=== PATIENT | female | born 1970 | race Two or more races ===

== ENCOUNTER → 2020-09-01 | Outpatient (CLI) | payer SELFPAY ==
[~2020-09-01] MED LIST: DOCU-109 PO; IBUP-1060 PO; OXYC1TAB15 PO
== END ==
LOC: LAB 12:13
PROVIDERS: ATTEND Obstetrics & Gynecology
DX: Z01.812 Encounter for preprocedural laboratory examination (principal); Z20.828 Contact with and (suspected) exposure to other viral communicable diseases; N95.0 Postmenopausal bleeding
CPT/HCPCS: U0003

== ENCOUNTER 2020-09-05 06:05 | Day surgery (SDC) | payer SELFPAY ==
[~2020-09-05] VITALS: Ht 166.4 cm; Wt 68.9 kg
[2020-09-05] MEDS ORDERED: fentaNYL PF VIAL 100 MCG/2 ML VIAL IVP PRN ×2 (07:00)
[2020-09-05] MEDS ORDERED: ONDANSETRON PF 4 MG/2 ML VIAL. IVP PRN (07:00)
[2020-09-05] MEDS ORDERED: PROCHLORPERAZINE 10 MG/2 ML VIAL. IVP PRN (07:00)
[2020-09-05] MEDS ORDERED: LIDOCAINE 1% PF 2 ML VIAL. ID PRN (07:00)
[2020-09-05] MEDS ORDERED: HYDROmorphone 2 MG/ML VIAL IVP PRN (07:00)
[2020-09-05] MEDS ORDERED: IV RINGERS,LACTATED 1000ML 1,000 ML IV SCH (07:00)
[2020-09-05] MEDS ORDERED: MORPHINE SULFATE 2 MG/ML VIAL. IVP PRN (07:00)
[2020-09-05] MEDS ORDERED: MIDAZOLAM HCL/PF 2 MG/2 ML VIAL. ONE (07:10)
[2020-09-05] MEDS ORDERED: DEXAMETHASONE SOD PHOS 4 MG/ML VIAL ONE (07:10)
[2020-09-05] MEDS ORDERED: LIDOCAINE 2% PF 5 ML VIAL. ONE (07:10)
[2020-09-05] MEDS ORDERED: PROPOFOL 10 MG/ML (20ML) VIAL. IV ONE (07:10)
[2020-09-05] MEDS ORDERED: ONDANSETRON PF 4 MG/2 ML VIAL. ONE ×2 (07:10→07:57)
--- NOTE | 2020-09-05 07:14 | PDOC1 ---
AUCTION ASSISTANT H&P Date of Admission: Date of Admission: History of Present Illness: 50y presents for scheduled surgery. The pt presented to the office on 07/13/20 with irregular vaginal bleeding. A large cervical polyp was found on exam, but could not be removed in the office. Most likely due to the polyp having a large base. At the visit we discussed removal in the OR. PMH: Hyperlipidemia, H/o Chl PSH: Denies Meds: Vit D, Ca, Gabapentin, Flonase All: NKDA OBHx: TSVD x 4, AB x 1 SH: no tob, no EtOH FH: stroke, DM Allergies: Coded Allergies: No Known Drug Allergies (Unverified , 09/01/20) Physical Exam: PE: GENERAL: No apparent distress. Alert and oriented. HEENT: Head normocephalic, atraumatic. NECK: Supple LUNGS: Clear to auscultation. HEART: RRR, S1, S2 present, pulses intact ABDOMEN: Soft, positive bowel sounds. EXTREMITIES: No cyanosis or edema. NEUROLOGIC: Normal speech, normal tone PSYCHIATRIC: Normal affect, normal mood. SKIN: No ulceration. Labs: Laboratory Tests Test 09/05/20 06:43 POC Urine HCG, Qualitative Hcg negative (Negative) Assessment & Plan: A/P 50y with irregular bleeding 1.) Irregular bleeding thought to be 2/2 cervical polyp, unable to remove in the office, scheduled for H/S, D&C possible myosure 2.) Hyperlipidemia JIM RODRIGUEZ MD Sep 05, 2020 07:14
[2020-09-05 07:16] LABS: BASO % 1 % (0-3); EOS # 0.1 x10^3/uL (0.0-0.7); EOS % 2 % (0-3); HEMATOCRIT 37.4 % (36.0-47.0); HEMOGLOBIN 12.5 g/dL (12.0-15.5); LYMPH # 1.9 x10^3/uL (1.0-4.8); LYMPH % 29 % (24-48); MEAN CORPUSCULAR HEMOGLOBIN 27 pg (25-35); MEAN CORPUSCULAR HGB CONC 33 g/dL (31-37); MEAN CORPUSCULAR VOLUME 82 fL (79-100); MONO # 0.5 x10^3/uL (0.0-1.1); MONO % 8 % (0-9); NEUT # 3.9 x10^3/uL (1.8-7.7); NEUT % 61 % (31-73); PLATELET COUNT 220 x10^3/uL (140-400); RED BLOOD COUNT 4.58 x10^6/uL (3.50-5.40); RED CELL DISTRIBUTION WIDTH 15.1 % (11.5-14.5); WHITE BLOOD COUNT 6.4 x10^3/uL (4.0-11.0)
[2020-09-05] MEDS ORDERED: KETOROLAC 30 MG/ML VIAL. ONE (07:57)
[2020-09-05] MEDS ORDERED: PHENYLEPHRINE in 0.9% NACL PF 1 MG/10 ML SYRINGE. IV ONE (08:13)
[2020-09-05] MEDS ORDERED: SEVOFLURANE 31 TO 60 MINUTES. IH ONE (08:22)
[2020-09-05] MEDS ORDERED: IBUP-1060 PO (08:34)
[2020-09-05] MEDS ORDERED: OXYC1TAB15 PO (08:34)
[2020-09-05] MEDS ORDERED: DOCU-109 PO (08:34)
--- NOTE | 2020-09-05 09:10 | PDOC4 ---
OPERATIVE NOTE: PreOp Dx: 1.) Irregular bleeding, 2. cervical polyp PostOp Dx: same Procedure: H/S, Myosure, D&C Surgeon: Yolanda Rodriguez Anesthesia: GETA EBL: 100cc Findings: cervical polyp Complications: none: Path: Cervical polyp, D&C and Myosure specimen JIM RODRIGUEZ MD Sep 05, 2020 09:10
--- NOTE | 2020-09-05 09:36 | OP ---
DATE OF SURGERY: 09/05/2020 PREOPERATIVE DIAGNOSES: 1. Irregular bleeding. 2. Cervical polyp. POSTOPERATIVE DIAGNOSES: 1. Irregular bleeding. 2. Cervical polyp. PROCEDURE: Hysteroscopy, D & C with MyoSure. SURGEON: Dillon Rodriguez MD ANESTHESIA: General endotracheal intubation. ESTIMATED BLOOD LOSS: 100 mL. FINDINGS: Cervical polyp. COMPLICATIONS: None. PATHOLOGY: Cervical polyp, D and C and MyoSure. DESCRIPTION OF PROCEDURE: The patient was taken to the operating room where general endotracheal intubation was obtained without difficulty. The patient was prepped and draped in normal sterile fashion. Speculum was placed in the patient's vagina to visualize the cervix. Immediately upon opening the speculum, the cervical polyp dropped into place. The cervical polyp measured roughly 2 x 2 cm. At that point, the polyp was attempted to be grasped by ring forceps and twisted off. This could not be accomplished and the tissue was tearing somewhat when this was done. At that point, a tenaculum was placed on the anterior lip of the cervix. The hysteroscope was tried to be placed to find the stalk of the polyp, but there was no path of the cervix that was sufficiently dilated enough for this to be accomplished. A dilator was then used to find the pathway and to dilate the cervix sufficiently for the hysteroscope to be placed. This was found above the polyp at approximately 12 o'clock. Once the hysteroscope was placed the inside of the endometrial cavity was revealed to be normal. The polyp was found to be originating from the cervix, but could not be taken down with the MyoSure. At that point, the hysteroscope was removed and a scalpel was used to cut out the polyp as near the base as possible, stabilizing the polyp with the ring forceps. Once the cervical polyp was free, this was sent to pathology. There was still remaining portion of the base. The hysteroscope was replaced to see if this could be readily identified and taken down with the MyoSure. The MyoSure was performed in a few godwin areas in the endometrial cavity, but the polyp was fairly distal from the uterus, not allowing for the MyoSure to be used. At that point, a dilation and curettage was performed. The dilation and curettage could not remove the portions of the cervical polyp base, which was located anteriorly. This was then grabbed with ring forceps and twisted off. The ring forceps were able to achieve completion of removing the polyp. Good hemostasis was noted. At that point, the patient was taken to the recovery room in stable condition. DILLON RODRIGUEZ MD DR: CIERA/ronnell JOB#: [id number] / [id number] ERIC
[2020-09-05 09:54] VITALS: BP 121/55
[2020-09-05] MEDS ORDERED: oxyCODONE/APAP 5/325 1 TAB TABLET PO ONE (10:30)
--- NOTE | 2020-09-06 22:11 | PATHOLOGY ---
[facility] Accession Number: [id number] . 01 Material submitted: . PART A: cervix - CERVICAL POLYP PART B: endocervix - ENDOCERVICAL CURETTINGS . 01 Clinical history: . POSTMENOPAUSAL BLEEDING . 02 Diagnosis: A. "Cervical polyp", polypectomy and curettage: - Endocervical polyp measuring 3.5 cm grossly with focal squamous metaplasia and acute inflammation/ulceration; no dysplasia seen. - Endometrium with secretory phase pattern. . B. "Endocervical curettings", curettage: - Endometrium with secretory phase pattern and fragments consistent with endometrial polyp; no atypical hyperplasia or malignancy seen. - Fragments of endocervical polyp; no dysplasia seen. (CLW:grabiel; 09/06/2020) [facility] [place] 09/06/20202118 Local . 02 Comment: Clinical and hysteroscopic correlation is recommended. (CLW:grabiel; 09/06/2020) . 02 Electronically signed: . Berkley Simon MD, Pathologist NPI- [id number] . 01 Gross description: . A. Received in formalin labeled "Dee Pires, cervical polyp" is a vera-pink rubbery soft tissue mass measuring 3.5 x 3.3 x 2.3 cm. Also present within the container are multiple smaller fragments of vera-pink rubbery tissue and red-brown clotted blood material measuring in aggregate 3.0 x 2.4 x 0.8 cm. The specimen is submitted entirely as follows: A1-A8 largest portion of tissue, serially sectioned; A9-A10 smaller fragments and clotted blood. . B. Received in formalin labeled "Dee Pires, endocervical curettings" is a 3.5 x 3.0 x 1.8 cm aggregate of minute vera-pink rubbery soft tissue and red-brown clotted blood material. The specimen is submitted entirely in cassettes B1-B3. ([facility] [place]; 09/05/2020) [facility] 09/06/2020 2119 Local . 02 Pathologist provided ICD-10: N84.1, N72, N84.0 . 02 CPT . 535200, [id number] Specimen Comment: A courtesy copy of this report has been sent to [phone] Specimen Comment: Report sent to Performed at: 01 [facility] [address] [facility] [address], [place] [id number] MD Reji Escobar MD Phone: [phone] Performed at: 02 [facility] [address] [place] [id number] MD Dimitrios Moya MD Phone: [phone]
== END 2020-09-05 10:45 | disposition home or self-care (01) ==
LOC: SURG 06:05
PROVIDERS: ATTEND Obstetrics & Gynecology
DX: N95.0 Postmenopausal bleeding (principal); N84.1 Polyp of cervix uteri; N72 Inflammatory disease of cervix uteri; N84.0 Polyp of corpus uteri; E78.5 Hyperlipidemia, unspecified; Z79.899 Other long term (current) drug therapy
CPT/HCPCS: 36415; 58558; 81025; 85025; 86850; 86900; 86901; J1100; J1885; J2250; J2370; J2405; J2704